=== PATIENT | male | born 1955 | race Caucasian/White ===

== ENCOUNTER 2018-12-09 04:20 | Observation (INO) ==
[2018-12-09] MEDS ORDERED: NITROGLYCERIN SL 0.4 MG/TAB TAB SL STA ×2 (04:27→05:29)
--- NOTE | 2018-12-09 04:30 | Emergency Department Note ---
ED Provider Note Name: Mukund Arroyo Age: 63 M Arrives Via: EMS Informant: Pt, EMS CC: Chest Pressure HPI: 63 male arrives for evaluation of chest pressure. Patient with sudden onset of substernal chest pressure this morning. No radiation. Nothing made better nor worse. No associated symptoms. Denies nause,a vomiting, palpiations, headache, neck pain, syncope, lightheaded nor other symptoms. 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 He admits history of DMII, DLP, HTN. He has previous smoking history. Mother with multiple MIs and eventually of cardiac disease. Denies trauma nor injuries. EMS gave 324mg [employer]. Patient with stress test several years ago which he notes was normal. Denies recent travel, surgery, leg swelling, calf pain nor history of DVT/PE in him nor family. ROS: See above HPI for pertinent positives & negatives. A total of 10 systems reviewed and were otherwise negative. Past Medical History: DLP, DMII, HTN, GERD, Neuropathy Past Surgical History: None Family History: Mother with NC Social History: Lives along, previous smoker, no drugs/etoh Home Medications: Atorvastatin, gabapentin, lansoprazole, metformin, ranitidine Allergies NKDA Physical: Vitals: 166/116, P 72, R 20, T 36.6, O2 99% Exam: GENERAL: Patient is anxious appearing and in mild distress. EYES: No scleral icterus, unremarkable pupils. ENT: Mucous membranes moist, no nasal congestion. NECK: No masses appreciated, no meningismus, trachea is midline. RESPIRATORY: No dyspnea. Clear to auscultation and equal bilaterally. No wheeze, no rhonchi. CARDIOVASCULAR: Regular rate and rhythm. No murmurs, rubs, gallops appreciated. GASTROINTESTINAL: Abdomen soft, non-tender, no peritonitis. Bowel sounds positi ve. No masses appreciated. BACK: No midline tenderness, no CVA tenderness EXTREMITIES: Normal motion all extremities, no cyanosis, no edema. NEUROLOGIC: Alert and oriented, no acute motor or sensory deficits, no focal weakness, cranial nerves grossly intact. SKIN: No rash, no jaundice, no diaphoresis. ED Course: Prior Medical Record, Triage/Nursing Notes, Medications, Allergies reviewed by Me Vital Signs: reviewed and remarkable for HTN Labs: Reviewed and remarkable for normal cbc, bmp, trop Interventions: Saline Lock, SLNTG x 3, Ativan 1mg IV x 1 Imaging: X ray results are stated below per my interpretation: Chest: 1 view: No infiltrate, no effusion, normal cardiac border. EKG: Per My Interpretations #1 Sinus john 56 bpm without ectopy. There are steptal ST depressions #2 NSR 62 bpm no ectopy no ischemia. QTC 408. Improved ST from EKG #1 Consults: Dr Price Reassessments/Times: Stable starting to feel better Blood pressure: Normal. No Referral necessary Disposition: Hospitalization Differentials: ACS, GERD, PE, Dissection, PNA, GB amongst other pathologies. Medical Decision Making: Pleasant 63 yr old male arrives for substernal chest pressure. No previous like this. Multiple cardiac risk factors. Pain initially improved with SLNTG as BP improved. He is quite anxious and ativan given. With return of pain and normal EKG I did opt to give some fentanyl as SLNTG at that time not helping. Suspect there is anxiety component to this though he will clearly need further work-up evaluation, especially given abnormal ST septally on initially ekg (granted poor baseline at that time). No shob nor breathlessness and he is perc negative so I do not feel that CT PE is indicated. Symptoms not consistent with dissection. He has no TTP over epigastrium nor abdomen. Impression: Substernal Chest Pain Mahin Campo MD Impression & Plan Substernal chest pain Past Med/Surg History Social History Preferred Language: Sinhala Feels Safe at Home: Yes Smoking Status: Former smoker Results & Data Vital Signs Vital Signs - 24 hr 12/09/18 04:20 12/09/18 04:26 12/09/18 04:27 Temperature 36.6 C Temperature Source Oral Sepsis Recent Fever Within 48 Hours No Sepsis New/Unexplained Change in Mental Status No Sepsis Action Taken by Nursing No Action Required Pulse Rate 72 57 L 70 Pulse Rate [Apical] Pulse Rate from SpO2 Sensor 58 L 70 Pulse Rhythm [Apical] Pulse Strength [Apical] Respiratory Rate 20 17 13 Respiratory Effort / Characteristics Non-Labored Spontaneous Respiratory Depth Normal Respiratory Pattern Regular Blood Pressure 166/116 H 168/115 H 164/113 H Blood Pressure [Right Arm] Blood Pressure Mean 132 132 130 Blood Pressure Mean [Right Arm] Blood Pressure Position [Right Arm] Pulse Oximetry 99 99 99 Oxygen Delivery Method Room Air 12/09/18 04:28 12/09/18 04:30 03/10/19 04:31 Temperature Temperature Source Sepsis Recent Fever Within 48 Hours Sepsis New/Unexplained Change in Mental Status Sepsis Action Taken by Nursing Pulse Rate 80 59 L 62 Pulse Rate [Apical] Pulse Rate from SpO2 Sensor 72 60 61 Pulse Rhythm [Apical] Pulse Strength [Apical] Respiratory Rate 20 20 14 Respiratory Effort / Characteristics Respiratory Depth Respiratory Pattern Blood Pressure 158/105 H Blood Pressure [Right Arm] Blood Pressure Mean 122 Blood Pressure Mean [Right Arm] Blood Pressure Position [Right Arm] Pulse Oximetry 99 98 98 Oxygen Delivery Method 12/09/18 04:41 12/09/18 05:00 12/09/18 05:01 Temperature Temperature Source Sepsis Recent Fever Within 48 Hours Sepsis New/Unexplained Change in Mental Status Sepsis Action Taken by Nursing Pulse Rate 71 62 66 Pulse Rate [Apical] Pulse Rate from SpO2 Sensor 72 61 65 Pulse Rhythm [Apical] Pulse Strength [Apical] Respiratory Rate 20 13 16 Respiratory Effort / Characteristics Respiratory Depth Respiratory Pattern Blood Pressure 119/88 137/86 Blood Pressure [Right Arm] Blood Pressure Mean 98 103 Blood Pressure Mean [Right Arm] Blood Pressure Position [Right Arm] Pulse Oximetry 97 95 96 Oxygen Delivery Method 12/09/18 05:09 12/09/18 06:10 Temperature Temperature Source Sepsis Recent Fever Within 48 Hours Sepsis New/Unexplained Change in Mental Status Sepsis Action Taken by Nursing Pulse Rate Pulse Rate [Apical] 72 68 Pulse Rate from SpO2 Sensor Pulse Rhythm [Apical] Regular Regular Pulse Strength [Apical] Normal Normal Respiratory Rate 18 18 Respiratory Effort / Characteristics Non-Labored Spontaneous Non-Labored Spontaneous Respiratory Depth Normal Normal Respiratory Pattern Regular Regular Blood Pressure Blood Pressure [Right Arm] 137/86 136/94 Blood Pressure Mean Blood Pressure Mean [Right Arm] 103 108 Blood Pressure Position [Right Arm] Lying Lying Pulse Oximetry 98 95 Oxygen Delivery Method Room Air Room Air Laboratory Data Result diagrams: 12/09/18 04:00 12/09/18 04:00 Lab Results 12/09/18 12/09/18 12/09/18 Range/Units 04:00 04:00 04:00 WBC 12.91 H (4.8-10.8) K/uL RBC 4.92 (4.7-6.1) M/uL Hgb 14.8 (14.0-18.0) g/dL Hct 44.0 (42-52) % MCV 89.4 (80-100) fL MCH 30.1 (25-34) pg MCHC 33.6 (32-36) g/dL RDW Std Deviation 40.9 (36.4-46.3) fL RDW Coeff of Gonzalez 12.6 (11.5-14.5) % Plt Count 310 (130-400) K/uL MPV 11.7 H (7.4-10.4) fL Immature Gran % (Auto) 0.3 % Neut % (Auto) 47.9 % Lymph % (Auto) 41.4 % [place] % (Auto) 7.0 % Eos % (Auto) 2.9 % Baso % (Auto) 0.5 % Immature Gran # (Auto) 0.04 H (0.00-0.02) K/uL Neut # (Auto) 6.17 (1.4-6.5) K/uL Lymph # (Auto) 5.35 H (1.2-3.4) K/uL [place] # (Auto) 0.90 H (0.11-0.59) K/uL Eos # (Auto) 0.38 (0-0.5) K/uL Baso # (Auto) 0.07 (0-0.2) K/uL PT 10.4 (9.0-12.0) Seconds INR 1.0 (0.9-1.1) APTT 26.0 (21.0-31.0) Seconds PTT Ratio 1.0 Sodium 141 (136-145) mmol/L Potassium 3.6 (3.5-5.1) mmol/L Chloride 107 (98-107) mmol/L Carbon Dioxide 25 (21-32) mmol/L Anion Gap 9.0 (3-11) BUN 14 (7-18) mg/dl Creatinine 0.94 (0.6-1.4) mg/dl Est Cr Clr Drug Dosing 92.4 ml/min Est GFR ( Amer) 99.6 Est GFR (Non-Af Amer) 85.9 BUN/Creatinine Ratio 14.9 (10-20) Glucose 160 H (70-99) mg/dl Calcium 8.8 (8.5-10.1) mg/dl Troponin I < 0.015 (0-0.045) ng/ml Administered Medications Discontinued Medications Fentanyl Citrate (Fentanyl Citrate) 75 mcg IV NOW STA Stop: 12/09/18 05:52 Last Admin: 12/09/18 06:09 Dose: Not Given Documented by: [id number] Lorazepam (Ativan) 1 mg in 2 mls @ 2 mls/min IV NOW STA Stop: 12/09/18 05:30 Last Admin: 12/09/18 05:35 Dose: 2 mls/min Documented by: [id number] Nitroglycerin (Nitrostat) 0.4 mg SL NOW STA Stop: 12/09/18 04:28 Last Admin: 12/09/18 04:33 Dose: 0.4 mg Documented by: [id number] Nitroglycerin (Nitrostat) 0.4 mg SL NOW STA Stop: 12/09/18 05:30 Last Admin: 12/09/18 05:36 Dose: 0.4 mg Documented by: [id number] Discharge Plan Visit Data Chief Complaint: Cardiac Assessment ED Provider: Mahin Campo Discharge Problem: Substernal chest pain Forms Stand Alone Forms: My [facility] Prescriptions Prescriptions: No Action atorvastatin 40 mg tablet 40 mg PO HS RF: 0 metformin 500 mg tablet 500 mg PO BID RF: 0 gabapentin 600 mg tablet 600 mg PO BIDM RF: 0 gabapentin 600 mg tablet 1,200 mg PO HS RF: 0 ranitidine HCl 300 mg tablet 300 mg PO HS RF: 0 lansoprazole 30 mg capsule,delayed release(DR/EC) 30 mg PO QAM RF: 0
[2018-12-09 04:40] LABS: Hemoglobin 14.8 g/dL (14.0-18.0); Mean Corpuscular Hgb Conc 33.6 g/dL (32-36); Mean Corpuscular Volume 89.4 fL (80-100); Mean Platelet Volume 11.7 fL (7.4-10.4); Platelet Count 310 K/uL (130-400); RDW Coefficient of Variation 12.6 % (11.5-14.5); RDW Standard Deviation 40.9 fL (36.4-46.3); Red Blood Count 4.92 M/uL (4.7-6.1); White Blood Count 12.91 K/uL (4.8-10.8)
[2018-12-09 04:55] LABS: BUN Creatinine Ratio 14.9 (10-20); Blood Urea Nitrogen 14 mg/dl (7-18); Calcium 8.8 mg/dl (8.5-10.1); Carbon Dioxide 25 mmol/L (21-32); Chloride 107 mmol/L (98-107); Creatinine Clr Calc Pharmacy 92.4 ml/min; Est GFR (African American) 99.6; Est GFR (Non-African American) 85.9; Glucose 160 mg/dl (70-99); Potassium 3.6 mmol/L (3.5-5.1); Sodium 141 mmol/L (136-145)
[2018-12-09 05:00] LABS: Troponin I < 0.015 ng/ml (0-0.045)
[2018-12-09 05:03] LABS: Prothrombin Time 10.4 Seconds (9.0-12.0)
[2018-12-09 05:24] LABS: Basophils # (auto) 0.07 K/uL (0-0.2); Basophils % (auto) 0.5 %; Eosinophils # (auto) 0.38 K/uL (0-0.5); Eosinophils % (auto) 2.9 %; Immature Granulocytes # (auto) 0.04 K/uL (0.00-0.02); Immature Granulocytes % (auto) 0.3 %; Lymphocytes # (auto) 5.35 K/uL (1.2-3.4); Lymphocytes % (auto) 41.4 %; Neutrophils # (auto) 6.17 K/uL (1.4-6.5); Neutrophils % (auto) 47.9 %
[2018-12-09] MEDS ORDERED: LORazepam 1 MG/2 ML VIAL IV STA (05:29)
[2018-12-09] MEDS ORDERED: fentaNYL citrate 100 MCG/2 ML VIAL IV STA (05:51)
--- NOTE | 2018-12-09 06:12 | XRay Report ---
XR chest 1V portable CLINICAL HISTORY: CP dyspnea COMPARISON STUDY: No previous studies for comparison. FINDINGS: The bones soft tissues and hemidiaphragms are normal. The cardiomediastinal silhouette is n ormal. The lungs are clear. The pulmonary vasculature is normal. Slight blunting right lateral costop hrenic angle IMPRESSION: Negative chest. Slight blunting right lateral costophrenic angle The above report was generated using voice recognition software. It may contain grammatical, syntax or spelling errors. Electronically signed by: Trevon Botello M.D. 12/09/2018 6:11 AM
[2018-12-09] MEDS ORDERED: ACETAMINOPHEN 325 MG TAB PO PRN (07:37)
[2018-12-09] MEDS ORDERED: NITROGLYCERIN SL 0.4 MG/TAB TAB SL PRN (07:37)
[2018-12-09] MEDS ORDERED: ALUMINUM/MAGNESIUM SUSP 30 ML UDC PO PRN (07:37)
[2018-12-09] MEDS ORDERED: ONDANSETRON INJ 2 MG/ML 2 ML VIAL IV PRN (07:37)
[2018-12-09] MEDS ORDERED: CARBOHYDRATES FOR HYPOGLYCEMIA PO PRN (07:45)
[2018-12-09] MEDS ORDERED: GLUCOSE 40% GEL 15 GM TUBE PO PRN (07:45)
[2018-12-09] MEDS ORDERED: GLUCOSE 10 TABS/TUBE PO PRN (07:45)
[2018-12-09] MEDS ORDERED: DEXTROSE 50% 50 ML SYRINGE IV PRN (07:45)
[2018-12-09] MEDS ORDERED: GLUCAGON FOR INJ 1 MG VIAL IM PRN (07:45)
--- NOTE | 2018-12-09 09:30 | History and Physical Report ---
DATE OF ADMISSION: 12/09/2018 CHIEF COMPLAINT: Chest pain. HISTORY OF PRESENT ILLNESS: This is a 63-year-old male with past medical history significant for hyperlipidemia, allergic rhinitis, gastritis, cervical disc disease with myelopathy, avascular necrosis of both the hips who presents with chest pain. The patient was babysitting his dogs, one of the dogs woke up at 12:00 and it could not go to sleep, so he took the dog to the basement where it usually sleeps but it was not sleeping and at around 2:00 a.m., he started to notice chest discomfort, pressure like feeling all over the chest, 6/10 in severity, was feeling short of breath, nauseous and anxious, so he came to the ER. In the ER, nitroglycerin relieved his pain, but it was short-lived, his pain came back and he took a total of 3 of nitroglycerins and because of his anxiety, ER also gave him some Ativan and they tried to give him some fentanyl, but he refused. He stated that he had bad experiences with narcotics in the past several years ago, so he does not want to take it. He still has some mild chest discomfort and is resting comfortably otherwise and hemodynamically stable. Denies any headache, no blurred vision. No cough, no fever, no chills. Currently, no shortness of breath, no abdominal pain. Normal bowel and bladder movements. No burning micturition. No swelling, no rash. The patient also says that he has diarrhea since August when he was talking amoxicillin for 5 days. Since then, he is having 4-5 episodes of diarrheal bowel movements every day. ALLERGIES: No known drug allergies. PAST MEDICAL HISTORY: As mentioned above. PAST SURGICAL HISTORY: Colonoscopy, dental surgery, EGD, tonsillectomy. MEDICATIONS: The patient is on Lipitor 40 mg p.o. daily, gabapentin 600 mg in the a.m. and 1200 mg at bedtime, metformin 500 mg p.o. b.i.d., Prevacid 30 mg p.o. daily, Zantac 300 mg p.o. at bedtime. FAMILY HISTORY: No family history on file. SOCIAL HISTORY: Single. Smoker, averaging 1 pack a day for 39 years. Alcohol, quit 10 years ago. Drinks occasionally. No drug use. REVIEW OF SYMPTOMS: As per HPI. Rest of the review of symptoms negative. PHYSICAL EXAMINATION: GENERAL: The patient is of moderate build, not in acute distress. VITAL SIGNS: Temperature 36.6, pulse 68, respiratory rate 18, blood pressure 136/94, oxygen 95% on room air. HEENT: No pallor, no icterus. Pupils equal, round, and react to light. NECK: No JVD, no neck masses, no carotid bruit. CARDIOVASCULAR: S1, S2 heard, regular rate and rhythm, no murmur, no gallop. RESPIRATORY SYSTEM: Normal AP diameter. No accessory muscle use. No wheezing, no crackles. ABDOMEN: Soft, bowel sounds present. Nontender. No distention. CENTRAL NERVOUS SYSTEM: Cranial nerves II-XII grossly intact. Nonfocal. EXTREMITIES: No edema, no erythema. LABORATORIES: WBC of 12.9, hemoglobin 14.8, hematocrit 44, platelets 310. PT 10.4, INR 1, APTT 26. Sodium 141, potassium 3.6, chloride 107, bicarbonate 25, BUN 14, creatinine 0.9, serum glucose 160, calcium 8.8. Troponin I less than 0.015. Chest x-ray: Negative chest. EKG: Sinus bradycardia, rate of 56. Questionable ST depressions in V1 and V2. On repeat EKG, the ST depressions have improved. ASSESSMENT AND PLAN: A 63-year-old male presents with chest pain. 1. Chest pain, rule out acute coronary syndrome. Risk factors of age, hyperlipidemia, diabetes, and history of smoking. Initial troponin is negative. Initial EKG showed some ST depression in V1, V2 whereas the repeat EKG is improved. He required 3 nitroglycerins, still has some chest discomfort. We will place him on nitroglycerin paste. He is refusing narcotics. He has ongoing neck pain and back pain issues and history of gastroesophageal reflux disease, but we will rule out acute coronary syndrome with serial cardiac enzymes, echocardiogram. We will keep him n.p.o. and consult cardiology for further recommendations. We will closely monitor him on telemetry floor. 2. History of hyperlipidemia. Continue statin. Follow his lipid profile. 3. History of cervical disc disease, on gabapentin, which we will continue. 4. History of diabetes. Hold metformin, place him on insulin sliding scale. Follow HbA1c levels. 5. History of gastroesophageal reflux disease, continue his Prevacid and Zantac. 6. Diarrhea. Ongoing since he took amoxicillin in August. will check c diff and stool cx. 7. Deep venous thrombosis prophylaxis, sequential compression devices for now. 8. Disposition: Observation on telemetry floor. Expect to discharge home and follow with his family doctor. Level 1, full code. MTDD
[2018-12-09] MEDS: INSULIN ASPART 100 UNITS/ML 3 ML PEN SC SCH ×4 (09:34→20:22)
[2018-12-09] MEDS: ASPIRIN 81 MG ECTAB PO SCH (09:36)
[2018-12-09] MEDS: PANTOprazole 40 MG TAB PO SCH (09:36)
[2018-12-09] MEDS: GABAPENTIN 600 MG TAB PO SCH ×3 (09:36→20:21)
[2018-12-09] MEDS ORDERED: NITROGLYCERIN 2% OINTMENT 30GM TUBE EXT SCH (12:00)
--- NOTE | 2018-12-09 12:55 | Hospitalist Progress Note ---
Date of Service December 09, 2018 Assessment & Plan (1) Substernal chest pain: Admitted with exertional chest pain since early this morning Has had questionable EKG changes but cardiac enzymes have been negative No more chest pain since admission Appreciate cardiology input and recommendation Likely to have a stress test tomorrow (2) HTN (hypertension): Blood pressure remains stable Continue current medications (3) Diabetes: Blood sugar is stable SSI while in the hospital Other medical conditions remained stable DVT prophylaxis with SCDs and increasing ambulation Likely discharge tomorrow following stress test Subjective Is a 63-year-old male with significant past medical history of hypertension, hyperlipidemia and diabetes was admitted with exertional chest pain which happened to be around 2 AM this morning. 12/09 Denies any chest pain or associated symptoms now Denies any other symptoms Remains hemodynamically stable without any arrhythmias on monitor Physical Exam Vital Signs (Past 24 Hours): Last Vital Signs Temp 36.6 C 12/09/18 12:05 Pulse 57 L 12/09/18 12:05 Resp 19 12/09/18 12:05 BP 156/82 H 12/09/18 12:05 Pulse Ox 96 12/09/18 12:05 Constitutional: WD/WN, vitals as above Eyes: PERRL, conjunctivae normal, anicteric sclerae ENMT: external ear and nose normal, oropharynx normal Neck: trachea midline, no thyromegaly Respiratory: normal respiratory effort, lungs clear to auscultation No c ostochondral tenderness Cardiovascular: Rate/Rhythm: regular rate, regular rhythm and + bradycardic Heart Sounds: normal S1 and normal S2 Gastrointestinal (Abdomen): normal bowel sounds, soft, nontender, no hepatosplenomegaly Neurologic: PERRL, EOMI, accommodation nl, no face palsy, no dysarthria Results & Data Laboratory Results Short CBC 12/09/18 Range/Units 04:00 WBC 12.91 H (4.8-10.8) K/uL Hgb 14.8 (14.0-18.0) g/dL Hct 44.0 (42-52) % Plt Count 310 (130-400) K/uL BMP 12/09/18 04:00 Sodium 141 Potassium 3.6 Chloride 107 Carbon Dioxide 25 BUN 14 Creatinine 0.94 Glucose 160 H Calcium 8.8 Cardiac Enzymes 12/09/18 Range/Units 04:00 Troponin I < 0.015 (0-0.045) ng/ml Medications Administered Current Inpatient Medications Acetaminophen (Tylenol) 650 mg PO Q4H PRN PRN Reason: Pain or Fever Stop: 01/08/19 07:36 Al Hydrox/Mg Hydrox/Simethicone (Maalox) 15 ml PO Q4H PRN PRN Reason: Dyspepsia Stop: 01/08/19 07:36 Aspirin (Ecotrin Ectab) [address] [facility] Stop: 01/08/19 08:59 Last Admin: 12/09/18 09:36 Dose: 81 mg Documented by: Atorvastatin Calcium (Lipitor) [address] [facility] Stop: 01/08/19 20:59 Dextrose (Dextrose 50%) 25 - 50 ml IV UD PRN; Protocol PRN Reason: Hypoglycemia Protocol Stop: 01/08/19 07:44 Gabapentin (Neurontin) 1,[address] [facility] Stop: 01/08/19 20:59 Gabapentin (Neurontin) [address] [facility] Stop: 01/08/19 07:59 Last Admin: 12/09/18 09:36 Dose: 600 mg Documented by: Glucagon (Glucagen) 1 mg IM UD PRN; Protocol PRN Reason: Hypoglycemia Protocol Stop: 01/08/19 07:44 Glucose (Glucose 40%) 15 - 30 gm PO UD PRN; Protocol PRN Reason: Hypoglycemia Protocol Stop: 01/08/19 07:44 Glucose (Dex4 Glucose) 4 - 8 tabs PO UD PRN; Protocol PRN Reason: Hypoglycemia Protocol Stop: 01/08/19 07:44 Insulin Aspart (Novolog Flexpen) [address] [facility] Stop: 01/08/19 07:36 Last Admin: 12/09/18 09:34 Dose: Not Given Documented by: Miscellaneous (Carbohydrates For Hypoglycemia) 15 - 30 gm PO UD PRN PRN Reason: Hypoglycemia Treatment Stop: 01/08/19 07:44 Nitroglycerin (Nitro-Bid 2%) 0.5 inch EXT Q6 [facility] Stop: 01/08/19 11:59 Nitroglycerin (Nitrostat) 0.4 mg SL UD PRN PRN Reason: Chest Pain Stop: 01/08/19 07:36 Ondansetron HCl (Zofran) 4 mg IV Q6H PRN PRN Reason: Nausea Stop: 04/09/19 07:36 Last Admin: 12/09/18 09:58 Dose: 4 mg Documented by: Pantoprazole Sodium (Protonix) 40 mg PO [facility] Stop: 01/08/19 08:59 Last Admin: 12/09/18 09:36 Dose: 40 mg Documented by: Ranitidine HCl (Zantac) 300 mg PO [facility] Stop: 01/08/19 20:59
--- NOTE | 2018-12-09 13:40 | Cardiology Consultation ---
Date of Consultation December 09, 2018 Assessment & Plan (1) Substernal chest pain: Patient is a 63-year-old male with cardiac risk factors of age gender family history, diabetes mellitus, hyperlipidemia and hypertension presented with symptoms of chest pressure pain and shortness of breath during emotional stress and physical activity. Initial enzymes and EKGs reflect no acute changes. Presentation was notable for marked hypertension on arrival question hypertensive urgency. Plan echocardiogram will be reviewed today. Anticipate stress test in a.m. unless EKGs or enzyme change Will recommend treating hypertension with patient having indications for DELMI inhibitor given diabetes mellitus and significant hypertension on presentation Will follow (2) HTN (hypertension): History of Present Illness Reason for Consultation: Chest pressure, shortness of breath Requesting Physician: Dr. Dominguez Attending Physician: Macie Dominguez MD History of Present Illness 63-year-old male whose past medical history is notable for type 2 diabetes mellitus, hyperlipidemia on therapy , cervical myelopathy. He has no prior history of cardiac disease. Outpatient review reveals elevated blood pressures on past measurements. His family history is notable for heart disease in mother including history of coronary bypass grafting and carotid enterectomy Patient underwent stress nuclear imaging March 2015 with normal study Patient presents this admission noting having developed breathlessness and chest pressure in the setting of marked emotional stress and physical stress. Initial EKGs have not demonstrated acute injury pattern and initial troponins are negative. Blood pressures were markedly elevated on initial presentation Patient denies history of prior angina, myocardial infarction, rheumatic fever, scarlet fever, congestive heart failure, orthopnea, or peripheral edema. Patient denies history of TIA or stroke, renal or hepatic disease, thyroid disorder. Appetite and weight have been stable. He has had no recent fevers chills or infections. Notes no acute weight loss or gain. Had recent increase in metformin dosing due to elevated glucoses and patient's been attempting to follow more vigorous diet control. Denies any difficulties with bleeding melena hematochezia dysuria hematuria. Chronic spine and hip issues limit activities patient previously very vigorous Allergies Allergy/AdvReac Type Severity Reaction Status Date / Time No Known Allergies Allergy Unverified 12/09/18 04:44 Home Medications Home Medications Medication Instructions Recorded Confirmed Type atorvastatin 40 mg PO HS 12/09/18 12/09/18 History gabapentin 1,200 mg PO HS 12/09/18 12/09/18 History gabapentin 600 mg PO BIDM 12/09/18 12/09/18 History lansoprazole 30 mg PO QAM 12/09/18 12/09/18 History metformin 500 mg PO BID 12/09/18 12/09/18 History ranitidine HCl 300 mg PO HS 12/09/18 12/09/18 History Patient History Family History Mother Hx of CABG Social History Preferred Language: Dominican Communication Ability: Effective Billing Manager Required: No Beliefs That Will Affect Care: None Current Living Situation: Alone Other Information That Helps Us Care for You: No Feels Safe at Home: Yes Safety Concerns: Feels Safe At This Time Smoking Status: Former smoker Hx Alcohol Use: No Hx Substance Use: No Review of Systems As per HPI and otherwise negative Physical Exam Vital Signs (Past 24 Hours): Last Vital Signs Temp 36.6 C 12/09/18 12:05 Pulse 57 L 12/09/18 12:05 Resp 19 12/09/18 12:05 BP 156/82 H 12/09/18 12:05 Pulse Ox 96 12/09/18 12:05 Constitutional: WD/WN, vitals as above Eyes: PERRL, conjunctivae normal, anicteric sclerae ENMT: external ear and nose normal, oropharynx normal Neck: trachea midline, no thyromegaly Respiratory: normal respiratory effort, lungs clear to auscultation Cardiovascular: RRR, no murmur, no edema Heart Sounds: normal S1 and normal S2; no gallop and no cardiac rub Vessels: normal carotid upstroke Gastrointestinal (Abdomen): normal bowel sounds, soft, nontender, no hepatosplenomegaly Musculoskeletal: no cyanosis or clubbing, extremities motor strength 5/5 Skin: no rashes, warm and dry Psychiatric: A+Ox3, euthymic affect Results & Data Laboratory Results Laboratory Results - last 24 hr 12/09/18 12/09/18 12/09/18 04:00 04:00 04:00 WBC 12.91 H RBC 4.92 Hgb 14.8 Hct 44.0 MCV 89.4 MCH 30.1 MCHC 33.6 RDW Std Deviation 40.9 RDW Coeff of [place] 12.6 Plt Count 310 MPV 11.7 H Immature Gran % (Auto) 0.3 Neut % (Auto) 47.9 Lymph % (Auto) 41.4 [place] % (Auto) 7.0 Eos % (Auto) 2.9 Baso % (Auto) 0.5 Immature Gran # (Auto) 0.04 H Neut # (Auto) 6.17 Lymph # (Auto) 5.35 H [place] # (Auto) 0.90 H Eos # (Auto) 0.38 Baso # (Auto) 0.07 PT 10.4 INR 1.0 APTT 26.0 PTT Ratio 1.0 Sodium 141 Potassium 3.6 Chloride 107 Carbon Dioxide 25 Anion Gap 9.0 BUN 14 Creatinine 0.94 Est Cr Clr Drug Dosing 92.4 Est GFR ( Amer) 99.6 Est GFR (Non-Af Amer) 85.9 BUN/Creatinine Ratio 14.9 Glucose 160 H POC Glucose Calcium 8.8 Troponin I < 0.015 12/09/18 12/09/18 07:39 11:08 WBC RBC Hgb Hct MCV MCH MCHC RDW Std Deviation RDW Coeff of Gonzalez Plt Count MPV Immature Gran % (Auto) Neut % (Auto) Lymph % (Auto) [place] % (Auto) Eos % (Auto) Baso % (Auto) Immature Gran # (Auto) Neut # (Auto) Lymph # (Auto) [place] # (Auto) Eos # (Auto) Baso # (Auto) PT INR APTT PTT Ratio Sodium Potassium Chloride Carbon Dioxide Anion Gap BUN Creatinine Est Cr Clr Drug Dosing Est GFR ( Amer) Est GFR (Non-Af Amer) BUN/Creatinine Ratio Glucose POC Glucose 145 H 133 H Calcium Troponin I
[2018-12-09] MEDS ORDERED: LISINOPRIL 5 MG TAB PO ONE (14:04)
[2018-12-09] MEDS: ATORVASTATIN 40 MG TAB PO SCH (20:22)
[2018-12-10 05:27] LABS: Basophils # (auto) 0.03 K/uL (0-0.2); Basophils % (auto) 0.2 %; Eosinophils # (auto) 0.08 K/uL (0-0.5); Eosinophils % (auto) 0.5 %; Hemoglobin 14.4 g/dL (14.0-18.0); Immature Granulocytes # (auto) 0.05 K/uL (0.00-0.02); Immature Granulocytes % (auto) 0.3 %; Lymphocytes # (auto) 2.83 K/uL (1.2-3.4); Mean Corpuscular Hgb Conc 33.5 g/dL (32-36); Mean Corpuscular Volume 89.4 fL (80-100); Mean Platelet Volume 11.4 fL (7.4-10.4); Monocytes % (auto) 7.8 %; Neutrophils # (auto) 12.38 K/uL (1.4-6.5); Neutrophils % (auto) 74.2 %; Platelet Count 285 K/uL (130-400); RDW Coefficient of Variation 12.7 % (11.5-14.5); RDW Standard Deviation 41.1 fL (36.4-46.3); Red Blood Count 4.81 M/uL (4.7-6.1); White Blood Count 16.67 K/uL (4.8-10.8)
[2018-12-10 05:51] LABS: BUN Creatinine Ratio 12.9 (10-20); Calcium 8.6 mg/dl (8.5-10.1); Creatinine Clr Calc Pharmacy 97.7 ml/min; Est GFR (Non-African American) 91.4; Magnesium 2.1 mg/dl (1.8-2.4)
[2018-12-10 06:47] LABS: Estimated Average Glucose 148 mg/dl; Hemoglobin A1C 6.8 % (4.5-5.6)
[2018-12-10] MEDS: INSULIN ASPART 100 UNITS/ML 3 ML PEN SC SCH ×4 (08:33→21:03)
[2018-12-10] MEDS: GABAPENTIN 600 MG TAB PO SCH ×3 (08:34→21:01)
[2018-12-10] MEDS: ASPIRIN 81 MG ECTAB PO SCH (08:34)
[2018-12-10] MEDS: PANTOprazole 40 MG TAB PO SCH (08:34)
--- NOTE | 2018-12-10 09:31 | Cardiology Progress Note ---
Date of Service December 10, 2018 Assessment & Plan (1) Substernal chest pain: Patient is a 63-year-old male with cardiac risk factors of age gender family history, diabetes mellitus, hyperlipidemia and hypertension presented with symptoms of chest pressure pain and shortness of breath during emotional stress and physical activity. Initial and serial enzymes and EKGs reflect no acute changes. Presentation was notable for marked hypertension on arrival question hypertensive urgency. Echocardiogram reflected posterior wall motion abnormality, telemetry revealed short runs of complex ventricular ectopy overnight. Discussed options of management and recommended diagnostic cardiac catheter ization later today. Procedure and risks explained in detail, patient agreeable further recommendations pending the results of study (2) HTN (hypertension): Improved with the addition of lisinopril Subjective She was seen and examined, chart occasions, telemetry reviewed No further chest pain or discomfort overnight. Telemetry demonstrated 2 short runs of nonsustained VT/complex ectopy Echocardiogram reflected hypokinesis of the posterior wall EKGs and enzymes without evolution Physical Exam Vital Signs (Past 24 Hours): Last Vital Signs Temp 36.7 C 12/10/18 07:09 Pulse 67 12/10/18 08:00 Resp 18 12/10/18 07:09 BP 127/79 12/10/18 07:09 Pulse Ox 96 12/10/18 07:09 Constitutional: WD/WN, vitals as above Eyes: PERRL, conjunctivae normal, anicteric sclerae ENMT: external ear and nose normal, oropharynx normal Neck: trachea midline, no thyromegaly Respiratory: normal respiratory effort, lungs clear to auscultation Cardiovascular: RRR, no murmur, no edema Heart Sounds: normal S1 and normal S2; no gallop and no cardiac rub Vessels: normal carotid upstroke Gastrointestinal (Abdomen): normal bowel sounds, soft, nontender, no hepatosplenomegaly Musculoskeletal: no cyanosis or clubbing, extremities motor strength 5/5 Skin: no rashes, warm and dry Psychiatric: A+Ox3, euthymic affect Results & Data Laboratory Results Laboratory Results - last 24 hr 12/09/18 12/09/18 12/09/18 11:08 14:15 16:27 WBC RBC Hgb Hct MCV MCH MCHC RDW Std Deviation RDW Coeff of Gonzalez Plt Count MPV Immature Gran % (Auto) Neut % (Auto) Lymph % (Auto) [place] % (Auto) Eos % (Auto) Baso % (Auto) Immature Gran # (Auto) Neut # (Auto) Lymph # (Auto) [place] # (Auto) Eos # (Auto) Baso # (Auto) Sodium Potassium Chloride Carbon Dioxide Anion Gap BUN Creatinine Est Cr Clr Drug Dosing Est GFR ( Amer) Est GFR (Non-Af Amer) BUN/Creatinine Ratio Glucose POC Glucose 133 H 140 H Estimat Average Glucose Hemoglobin A1c Calcium Magnesium Triglycerides Cholesterol LDL Cholesterol, Calc VLDL Cholesterol, Calc HDL Cholesterol Cholesterol/HDL Ratio Stl C. diff Tox B Gene TNP 12/09/18 12/10/18 12/10/18 20:09 05:15 05:15 WBC 16.67 H RBC 4.81 Hgb 14.4 Hct 43.0 MCV 89.4 MCH 29.9 MCHC 33.5 RDW Std Deviation 41.1 RDW Coeff of Gonzalez 12.7 Plt Count 285 MPV 11.4 H Immature Gran % (Auto) 0.3 Neut % (Auto) 74.2 Lymph % (Auto) 17.0 [place] % (Auto) 7.8 Eos % (Auto) 0.5 Baso % (Auto) 0.2 Immature Gran # (Auto) 0.05 H Neut # (Auto) 12.38 H Lymph # (Auto) 2.83 [place] # (Auto) 1.30 H Eos # (Auto) 0.08 Baso # (Auto) 0.03 Sodium 141 Potassium 4.0 Chloride 109 H Carbon Dioxide 26 Anion Gap 6.0 BUN 11 Creatinine 0.88 Est Cr Clr Drug Dosing 97.7 Est GFR ( Amer) 106.0 Est GFR (Non-Af Amer) 91.4 BUN/Creatinine Ratio 12.9 Glucose 128 H POC Glucose 112 H Estimat Average Glucose Hemoglobin A1c Calcium 8.6 Magnesium 2.1 Triglycerides 132 Cholesterol 122 LDL Cholesterol, Calc 52 VLDL Cholesterol, Calc 26 HDL Cholesterol 44 Cholesterol/HDL Ratio 3 Stl C. diff Tox B Gene 12/10/18 12/10/18 05:15 07:53 WBC RBC Hgb Hct MCV MCH MCHC RDW Std Deviation RDW Coeff of Gonzalez Plt Count MPV Immature Gran % (Auto) Neut % (Auto) Lymph % (Auto) [place] % (Auto) Eos % (Auto) Baso % (Auto) Immature Gran # (Auto) Neut # (Auto) Lymph # (Auto) [place] # (Auto) Eos # (Auto) Baso # (Auto) Sodium Potassium Chloride Carbon Dioxide Anion Gap BUN Creatinine Est Cr Clr Drug Dosing Est GFR ( Amer) Est GFR (Non-Af Amer) BUN/Creatinine Ratio Glucose POC Glucose 139 H Estimat Average Glucose 148 Hemoglobin A1c 6.8 H Calcium Magnesium Triglycerides Cholesterol LDL Cholesterol, Calc VLDL Cholesterol, Calc HDL Cholesterol Cholesterol/HDL Ratio Stl C. diff Tox B Gene
[2018-12-10] MEDS ORDERED: SODIUM CHLORIDE 0.9% 1000ML 1,000 ML IV SCH ×2 (09:45→16:30)
[2018-12-10] MEDS: LISINOPRIL 5 MG TAB PO SCH (10:18)
[2018-12-10] MEDS ORDERED: Heparin IV Standard *NO* Bolus IV SCH (10:39)
[2018-12-10] MEDS ORDERED: HEPARIN STANDARD DEXTROSE 25,000 UNITS/500 ML IV SCH (11:15)
[2018-12-10 11:21] LABS: INR 1.1 (0.9-1.1); Partial Thromboplastin Time 26.3 Seconds (21.0-31.0); Prothrombin Time 10.9 Seconds (9.0-12.0)
[2018-12-10] MEDS ORDERED: fentaNYL citrate 100 MCG/2 ML VIAL ONE (13:12)
[2018-12-10] MEDS ORDERED: MIDAZOLAM HCL 1 MG/ML 2ML VIAL ONE ×2 (13:12→14:49)
[2018-12-10] MEDS ORDERED: NITROGLYCERIN/D5W 100MCG/ML 20ML SYR ONE (13:13)
[2018-12-10] MEDS ORDERED: NiCARDipine HCL INJ 2.5 MG/ML 10 ML AMP ONE (13:13)
[2018-12-10] MEDS ORDERED: HEPARIN (PORCINE) 1000 UNIT/ML 10 ML (CATH LAB USE ONLY) ONE (13:13)
--- NOTE | 2018-12-10 13:34 | Pre Anesthesia Assessment ---
Date of Service December 10, 2018 Pre Sedation Assessment Vital Signs Temp Pulse Pulse Resp BP BP Pulse Ox 12/10/18 11:53 36.5 C 61 18 133/77 97 12/10/18 08:00 67 12/10/18 07:09 36.7 C 60 18 127/79 96 12/10/18 03:24 36.5 C 65 16 127/72 96 12/09/18 22:53 36.9 C 56 L 18 116/62 98 12/09/18 19:27 54 L 12/09/18 18:54 37.1 C 65 20 134/86 96 12/09/18 15:01 36.6 C 51 L 19 127/76 98 Cardiovascular RRR, no murmur, no edema Respiratory normal respiratory effort, lungs clear to auscultation Pre-Sedation Airway Assessment Smoking Status: Former smoker Mallampati Class: II NPO Status Date of Last Intake of Fluids: 12/10/18 Time of Last Intake of Fluids: 09:30 Date of Last Intake of Solid Food: 12/09/18 Procedure Planning Contraindications for Sedation: none Current Medications Reviewed: Yes Notes The planned sedation has been discussed with the patient. Informed Consent was obtained. I have identified the patient, determined the appropriateness of sedation and have assessed the patient immediately prior to the procedure. All medicine(s) and interventions are by my order.
[2018-12-10] MEDS ORDERED: ADENOSINE IV SOLN 3 MG/ML 20 ML VIAL IV ONE (14:23)
--- NOTE | 2018-12-10 14:23 | Cardiac Catheterization ---
Cardiac Cath Procedure: Brief Procedure Date December 10, 2018 Pre-Procedure Diagnosis Pre-Procedure Diagnosis: Non STEMI AUC Score AUC Score: 7 Post-Procedure Diagnosis Post-Procedure Diagnosis: Severe CAD (Circumflex obtuse marginal occlusion) Procedure(s) Performed Procedure(s) Performed: Coronary Angiography and Left Heart Cath X Ray Service Engineer Jorge Schreiber MD Hand Thermal Cutter(s) David Nunn Estimated Blood Loss Estimated Blood Loss: <15 cc Medication(s) Medication(s): Fentanyl (12.5 mcg IV), Heparin (2500 units IV 58), Lidocaine 1% (Local infiltration) and Versed (1 mg IV) Preliminary Findings Right dominant coronary anatomy Left main normal length and caliber free of disease Left anterior descending: Tortuous type III vessel with small first diagonal and large second diagonal branches in its proximal third. There is moderate irregularities throughout the vessel with a long 30% narrowing in its proximal portion, 20% mid vessel 20% apical Left circumflex: Nondominant. It gives rise to a large atrial branch and then is 100% occluded the distal vessel may be seen filling partially revealed left to left collateral flow Right coronary artery: Dominant, tortuous in its coursing. Gives rise to a large right ventricular branch in its mid portion, along posterior descending at the AV groove 2 small then 1 long terminal posterior ventricular branches Within the right coronary artery there is a 70% narrowing at the origin of the right ventricular branch LV angiography not performed LVEDP 11 Mild aortic stenosis with 15 mm peak to peak aortic valve gradient on pullback Recommendations Recommendations: PCI without planned CABG Specimens Specimens: None Fluids (cc crystalloids) Fluids (cc crystalloids): 58 Anesthesia Start time: 1344, stop time 1409 monitoring nurse Leeanne Yepez RN Procedural Complication(s) None
--- NOTE | 2018-12-10 14:45 | Cardiac Catheterization ---
Cardiac Cath Procedure Full Procedure Date December 10, 2018 Pre-Procedure Diagnosis Pre-Procedure Diagnosis: Non STEMI AUC Score AUC Score: 8 Post-Procedure Diagnosis Post-Procedure Diagnosis: Severe CAD (Circumflex obtuse marginal occlusion) Procedure(s) Performed Procedure(s) Performed: Coronary Angiography and Left Heart Cath Production Manufacturing Worker Jorge Schreiber MD Process Control Programmer(s) David Nunn Estimated Blood Loss Estimated Blood Loss: <15 cc Medication(s) Medication(s): Fentanyl (12.5 mcg IV), Heparin (2500 units IV 58), Lidocaine 1% (Local infiltration) and Versed (1 mg IV) Summary of Findings Right dominant coronary anatomy Left main normal length and caliber free of disease Left anterior descending: Tortuous type III vessel with small first diagonal and large second diagonal branches in its proximal third. There is moderate irregularities throughout the vessel with a long 30% narrowing in its proximal portion, 20% mid vessel 20% apical. Origin of first diagonal narrowed by 70%, origin of second diagonal by 40% Left circumflex: Nondominant. It gives rise to a large atrial branch and then is 100% occluded the distal vessel may be seen filling partially revealed left to left collateral flow Right coronary artery: Dominant, tortuous in its coursing. Gives rise to a large right ventricular branch in its mid portion, along posterior descending at the AV groove 2 small then 1 long terminal posterior ventricular branches Within the right coronary artery there is a 70% narrowing at the origin of the right ventricular branch LV angiography not performed LVEDP 11 Mild aortic stenosis with 15 mm peak to peak aortic valve gradient on pullback Hemodynamics Rest Ao:: 112/65/87 Final Ao: 115/65/89 LV: 133/2/11 Recommendations Recommendations: PCI without planned CABG Specimens Specimens: None Radiation Exposure (mGy) 1307 Contrast (mls) 65 Fluids (cc crystalloids) Fluids (cc crystalloids): 58 Anesthesia Start time: 1344, stop time 1409 monitoring nurse Leeanne Yepez RN Procedural Complication(s) None 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 Cardiac Status Clinical evaluation leading to the procedure CAD Presenation: Non STEMI Anginal Classification: CCS III Heart Failure: No Cardiogenic Shock within 24 Hours: No Cardiac Arrest within 24 Hours: No Imaging Studies Past 6 Months: Yes (Echocardiogram with hypokinesis posterior wall) Stress Studies Past 6 Months: No Standard Exercise Test: No Stress Echocardiogram: No Stress Testing w/SPECT MPI: No Cardiac CTA: No STEMI OR Non-STEMI Symptom Onset Date: 12/09/18 Symptom Onset Time: 02:00 Thrombolytics: No Coronary Anatomy Dominant: Right Left Main (% Stenosis): Normal LAD (% Stenosis): Proximal (Long 30% with mild irregularity throughout), Mid (20%) and Distal (20%) D1 (% Stenosis): Ostial (70 (small vessel)) D2 (% Stenosis): Ostial (40) D3 (% Stenosis): Mid (100% at obtuse marginal with staining at occlusion site) RCA (% Stenosis): Mid (70, eccentric) Diagnostic Physicians Name: Jorge Schreiber MD Status: Urgent Closure Device Recommendations: PCI without planned CABG
[2018-12-10] MEDS ORDERED: TICAGRELOR 90 MG TAB PO ONE (15:28)
[2018-12-10] MEDS ORDERED: ONDANSETRON INJ 2 MG/ML 2 ML VIAL IV PRN (15:53)
--- NOTE | 2018-12-10 15:57 | Post Anesthesia Assessment ---
Date of Service December 10, 2018 Post Sedation Assessment Vital Signs Temp Pulse Pulse Resp BP Pulse Ox 12/10/18 11:53 36.5 C 61 18 133/77 97 12/10/18 08:00 67 12/10/18 07:09 36.7 C 60 18 127/79 96 12/10/18 03:24 36.5 C 65 16 127/72 96 12/09/18 22:53 36.9 C 56 L 18 116/62 98 12/09/18 19:27 54 L 12/09/18 18:54 37.1 C 65 20 134/86 96 Recovery Score Activity: Moves 4 extremities Respiration: Deep Breath/Cough Circulation: +/-20% PreAnes Value Consciousness: Fully Awake Oxygen Saturation: O2 needed for >90% Post Sedation Plan On clinical assessment, the patient appears to have tolerated the sedation without complications. Patient is recovering as anticipated. Patient will continue to be monitored by nursing and may be discharged when sedation discharge criteria are met per below protocol. Upon Completions of procedure and additional 15 minutes continue every 5 minute vital signs and the P.A.R. score; then discharge to a Phase I or Fast Track to Phase II per the following guidelines: * Discharge Patient to appropriate Phase II area if PAR is 8 or greater or return to pre- procedure baseline. The post - procedure orders will be as directed. * If PAR score is less than 8 or not return to pre-procedure baseline then patient will follow Phase I monitoring till PAR is reached for Phase II. The Phase I may be done in procedure room or may call to secure a Phase I area. * If naloxone or flumazenil are used for reversal, hold in Phase I for continued monitoring from when last reversal dose was given for a minimum of 60 minutes or longer pending the nurse and/or physician discretion of patient condition before discharge to Phase II. Please call the Sedation Physician to re-evaluate and complete post-note for discharge to Phase II area. Do NOT discharge from procedure sedation or Phase 1 until post- sedation evaluation note is complete by procedure /sedation MD Sedation Discharge Instructions to be given to the patient at discharge to home.
--- NOTE | 2018-12-10 16:11 | Cardiac Catheterization ---
Cardiac Cath Procedure Full Procedure Date December 10, 2018 Pre-Procedure Diagnosis Pre-Procedure Diagnosis: Non STEMI AUC Score AUC Score: 8 Post-Procedure Diagnosis Post-Procedure Diagnosis: Severe CAD (Circumflex obtuse marginal occlusion) and Successful PCI Procedure(s) Performed Procedure(s) Performed: Drug Eluting Stent News Video Editor Manuel Desai MD Out And Out Cigar Maker Hand(s) Stephan Power Estimated Blood Loss Estimated Blood Loss: 20 Medication(s) Medication(s): Fentanyl, Heparin, Lidocaine 1%, Nicardipine, Nitroglycerin and Versed (1 mg IV) Medication(s): Ticagrelor Summary of Findings Indication: High-risk NSTEMI Access: 6Fr right radial artery Catheters: EBU 3.5 guide Findings: For full details of patient's coronary angiography please see cath report dictated by Dr. Schreiber. Briefly, patient found to have multivessel disease including an acute on chronic occlusion of his mid circumflex. Decision to proceed PCI. -- PCI -- Antithrombotic therapy: Heparin, Ticagrelor Procedure: LM cannulated with EBU 3.5 guide Long whisper wire passed across occlusion into distal vessel Intravascular position confirmed via injection through OTW balloon. Mid circumflex lesion/OM predilated with 2.0, 2.5 compliant balloons Mid OM2 stented with 2.5 x 26 mm [place] EVERETTE Proximal to mid circumflex stent with 2.5 x 26 [place] EVERETTE Stents post-dilated with 2.75 noncompliant balloon IC vasodilators administered for spasm Post procedure KI 3 flow, stents well expanded with minimal residual stenosis and no apparent cardiac complications. Arterial Closure: TR Band Summary: 1. Successful PCI of proximal to mid circumflex and mid OM2 with 2 drug-eluting stents (2.5 x 26, 2.5 x 26 [place]; post-dilated with 2.75 NC). Recommendations: To PCU for continued monitoring Loaded with Ticagrelor 180mg in cath lab tech Continue dual-antiplatelet therapy for at least 1 year Continue statin, and ASCVD risk factor modification Consult cardiac Rehab Plan for FFR +/- PCI of mid RCA sometime in the next several weeks. 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 Cardiac Status Clinical evaluation leading to the procedure CAD Presenation: Non STEMI Anginal Classification: CCS IV Heart Failure: No Cardiogenic Shock within 24 Hours: No Cardiac Arrest within 24 Hours: No Imaging Studies Past 6 Months: Yes Stress Studies Past 6 Months: No Diagnostic Physicians Name: Manuel Desai MD Status: Elective Closure Device Percutaneous Entry Location: Radial Closure Device: Radial Band Recommendations: PCI without planned CABG PCI Indication: PCI for high risk Non-AJ Lesion Segment Name: Proximal-mid circumflex Culprit Artery: Yes Stenosis Prior to Rx (%): 100 Chronic Total Occlusion: No IVUS: No FFR: No Pre-Procedure KI Flow: 0 Previously Treated Lesion: No Lesion Complexity: High/C Lesion Length (mm): 30+ Thrombus Present: Yes Bifurcation Lesion: No Guidewire Across Lesion: Stenosis Post-Procedure (%): 0 Post-Procedure KI Flow: 3 Devices(s) Deployed: Yes Yes Intraprocedure Events Significant Disection: No Perforation: No
[2018-12-10] MEDS: ATORVASTATIN 40 MG TAB PO SCH (21:01)
[2018-12-10] MEDS: TICAGRELOR 90 MG TAB PO SCH (21:01)
[2018-12-11] MEDS: INSULIN ASPART 100 UNITS/ML 3 ML PEN SC SCH ×4 (08:05→22:06)
[2018-12-11 08:38] LABS: BUN Creatinine Ratio 14.4 (10-20); Calcium 9.1 mg/dl (8.5-10.1); Creatinine Clr Calc Pharmacy 98.6 ml/min; Est GFR (African American) 106.5; Est GFR (Non-African American) 91.9; Potassium 3.8 mmol/L (3.5-5.1)
[2018-12-11] MEDS: GABAPENTIN 600 MG TAB PO SCH ×3 (10:15→20:38)
[2018-12-11] MEDS: LISINOPRIL 5 MG TAB PO SCH (10:15)
[2018-12-11] MEDS: PANTOprazole 40 MG TAB PO SCH (10:15)
[2018-12-11] MEDS: ASPIRIN 81 MG ECTAB PO SCH (10:16)
[2018-12-11] MEDS: TICAGRELOR 90 MG TAB PO SCH ×2 (10:41→20:39)
[2018-12-11] MEDS ORDERED: MIDAZOLAM HCL 1 MG/ML 2ML VIAL ONE (11:55)
[2018-12-11] MEDS ORDERED: HEPARIN (PORCINE) 1000 UNIT/ML 10 ML (CATH LAB USE ONLY) ONE (11:55)
[2018-12-11] MEDS ORDERED: NiCARDipine HCL INJ 2.5 MG/ML 10 ML AMP ONE (11:55)
[2018-12-11] MEDS ORDERED: NITROGLYCERIN/D5W 100MCG/ML 20ML SYR ONE (11:55)
[2018-12-11] MEDS ORDERED: fentaNYL citrate 100 MCG/2 ML VIAL ONE (11:55)
--- NOTE | 2018-12-11 11:56 | Cardiology Progress Note ---
Date of Service December 11, 2018 Assessment & Plan (1) Non-ST elevation myocardial infarction (NSTEMI): Patient underwent urgent diagnostic cardiac catheterization yesterday demonstrating 100% occlusion circumflex with successful revascularization with drug-eluting stent. Patient has residual disease in mid right coronary artery Plan a repeat cardiac catheterization flow wire and possible stenting of the right coronary artery Will place patient on optimal medical regimen interim add low-dose beta-silva to regimen post procedure. Continue lisinopril Increased dose of atorvastatin Dual antiplatelet therapy (2) Substernal chest pain: As above (3) HTN (hypertension): Improved with the addition of lisinopril (4) Aortic stenosis: Mild Subjective The patient was seen and examined, chart occasions, telemetry reviewed No further chest pain or discomfort overnight. Right radial site healing well Tolerated cardiac catheterization procedure well yesterday, renal function normal this morning Only complaint hungry, frustrated with new diagnosis of coronary disease Physical Exam Vital Signs (Past 24 Hours): Last Vital Signs Temp 36.6 C 12/11/18 10:47 Pulse 90 12/11/18 10:47 Resp 19 12/11/18 10:47 BP 134/84 12/11/18 10:47 Pulse Ox 97 12/11/18 10:47 Constitutional: WD/WN, vitals as above Eyes: PERRL, conjunctivae normal, anicteric sclerae ENMT: external ear and nose normal, oropharynx normal Mallampati Class: II Neck: trachea midline, no thyromegaly Respiratory: normal respiratory effort, lungs clear to auscultation Cardiovascular: RRR, no murmur, no edema Heart Sounds: normal S1 and normal S2; no gallop and no cardiac rub Vessels: normal carotid upstroke Gastrointestinal (Abdomen): normal bowel sounds, soft, nontender, no hepatosplenomegaly Musculoskeletal: no cyanosis or clubbing, extremities motor strength 5/5 Skin: no rashes, warm and dry Psychiatric: A+Ox3, euthymic affect
[2018-12-11] MEDS ORDERED: ADENOSINE IV SOLN 3 MG/ML 20 ML VIAL IV ONE (12:26)
--- NOTE | 2018-12-11 13:17 | Pre Anesthesia Assessment ---
Date of Service December 11, 2018 Pre Sedation Assessment Vital Signs Temp Pulse Pulse Resp BP Pulse Ox 12/11/18 10:47 36.6 C 90 19 134/84 97 12/11/18 07:45 76 12/11/18 07:01 36.4 C L 72 16 101/64 97 12/11/18 03:34 36.8 C 92 H 18 103/64 97 12/10/18 21:38 36.9 C 85 18 115/74 98 12/10/18 20:38 36.7 C 93 H 18 121/74 98 12/10/18 19:38 36.8 C 62 16 129/77 95 12/10/18 18:38 88 127/84 12/10/18 17:38 73 135/76 100 12/10/18 17:08 36.8 C 61 135/83 100 12/10/18 17:07 67 12/10/18 16:38 36.7 C 65 16 136/85 100 12/10/18 16:23 68 129/76 98 12/10/18 16:08 36.8 C 64 125/74 98 12/10/18 15:53 36.6 C 58 L 16 123/72 99 Cardiovascular RRR, no murmur, no edema Respiratory normal respiratory effort, lungs clear to auscultation Pre-Sedation Airway Assessment Smoking Status: Former smoker Mallampati Class: II NPO Status Date of Last Intake of Fluids: 12/10/18 Time of Last Intake of Fluids: 09:30 Date of Last Intake of Solid Food: 12/09/18 Procedure Planning Contraindications for Sedation: none Current Medications Reviewed: Yes Notes The planned sedation has been discussed with the patient. Informed Consent was obtained. I have identified the patient, determined the appropriateness of sedation and have assessed the patient immediately prior to the procedure. All medicine(s) and interventions are by my order.
--- NOTE | 2018-12-11 13:18 | Post Anesthesia Assessment ---
Date of Service December 11, 2018 Post Sedation Assessment Vital Signs Temp Pulse Pulse Resp BP Pulse Ox 12/11/18 10:47 36.6 C 90 19 134/84 97 12/11/18 07:45 76 12/11/18 07:01 36.4 C L 72 16 101/64 97 12/11/18 03:34 36.8 C 92 H 18 103/64 97 12/10/18 21:38 36.9 C 85 18 115/74 98 12/10/18 20:38 36.7 C 93 H 18 121/74 98 12/10/18 19:38 36.8 C 62 16 129/77 95 12/10/18 18:38 88 127/84 12/10/18 17:38 73 135/76 100 12/10/18 17:08 36.8 C 61 135/83 100 12/10/18 17:07 67 12/10/18 16:38 36.7 C 65 16 136/85 100 12/10/18 16:23 68 129/76 98 12/10/18 16:08 36.8 C 64 125/74 98 12/10/18 15:53 36.6 C 58 L 16 123/72 99 Recovery Score Activity: Moves 4 extremities Respiration: Deep Breath/Cough Circulation: +/-20% PreAnes Value Consciousness: Fully Awake Oxygen Saturation: O2 needed for >90% Post Sedation Plan On clinical assessment, the patient appears to have tolerated the sedation without complications. Patient is recovering as anticipated. Patient will continue to be monitored by nursing and may be discharged when sedation discharge criteria are met per below protocol. Upon Completions of procedure and additional 15 minutes continue every 5 minute vital signs and the P.A.R. score; then discharge to a Phase I or Fast Track to Phase II per the following guidelines: * Discharge Patient to appropriate Phase II area if PAR is 8 or greater or return to pre- procedure baseline. The post - procedure orders will be as directed. * If PAR score is less than 8 or not return to pre-procedure baseline then patient will follow Phase I monitoring till PAR is reached for Phase II. The Phase I may be done in procedure room or may call to secure a Phase I area. * If naloxone or flumazenil are used for reversal, hold in Phase I for continue d monitoring from when last reversal dose was given for a minimum of 60 minutes or longer pending the nurse and/or physician discretion of patient condition before discharge to Phase II. Please call the Sedation Physician to re-evaluate and complete post-note for discharge to Phase II area. Do NOT discharge from procedure sedation or Phase 1 until post- sedation evaluation note is complete by procedure /sedation MD Sedation Discharge Instructions to be given to the patient at discharge to home.
--- NOTE | 2018-12-11 13:19 | Cardiac Catheterization ---
Cardiac Cath Procedure: Brief Procedure Date December 11, 2018 Pre-Procedure Diagnosis Pre-Procedure Diagnosis: Non STEMI AUC Score AUC Score: 8 Post-Procedure Diagnosis Post-Procedure Diagnosis: Severe CAD (Circumflex obtuse marginal occlusion) and Successful PCI Procedure(s) Performed Procedure(s) Performed: Drug Eluting Stent Branch Officer Manuel Desai MD Mixing Machine Tender(s) Stephan Power Estimated Blood Loss Estimated Blood Loss: 20 Medication(s) Medication(s): Fentanyl, Heparin, Lidocaine 1%, Nicardipine, Nitroglycerin and Versed (1 mg IV) Preliminary Findings IFR 0.70 Successful PCI of mid RCA with single EVERETTE (3.0 x 18 mm Ramone). Recommendations Recommendations: PCI without planned CABG Specimens Specimens: None Drains Drains: none Anesthesia Moderate Procedural Complication(s) None Disposition PCU
[2018-12-11] MEDS ORDERED: SODIUM CHLORIDE 0.9% 1000ML 1,000 ML IV SCH (13:30)
--- NOTE | 2018-12-11 16:38 | Hospitalist Progress Note ---
Date of Service December 10, 2018 Assessment & Plan (1) Substernal chest pain: Admitted with exertional chest pain since early this morning Has had questionable EKG changes but cardiac enzymes have been negative No more chest pain since admission Appreciate cardiology input and recommendation Has had nonsustained VT last night Going to go for cardiac cath today (2) HTN (hypertension): Blood pressure remains stable Continue current medications (3) Diabetes: Blood sugar is stable SSI while in the hospital Other medical conditions remained stable DVT prophylaxis with SCDs and increasing ambulation Subjective Is a 63-year-old male with significant past medical history of hypertension, hyperlipidemia and diabetes was admitted with exertional chest pain which happened to be around 2 AM this morning. 12/09 Denies any chest pain or associated symptoms now Denies any other symptoms Remains hemodynamically stable without any arrhythmias on monitor 12/10 The patient was seen and examined in telemetry unit We will have cardiac cath today Physical Exam Vital Signs (Past 24 Hours): Last Vital Signs Temp 36.8 C 12/11/18 15:34 Pulse 77 12/11/18 16:04 Resp 18 12/11/18 16:04 BP 123/83 12/11/18 16:04 Pulse Ox 98 12/11/18 16:04 Constitutional: WD/WN, vitals as above Eyes: PERRL, conjunctivae normal, anicteric sclerae ENMT: external ear and nose normal, oropharynx normal Neck: trachea midline, no thyromegaly Respiratory: normal respiratory effort, lungs clear to auscultation Cardiovascular: Rate/Rhythm: regular rate, regular rhythm and + bradycardic Heart Sounds: normal S1 and normal S2 Gastrointestinal (Abdomen): normal bowel sounds, soft, nontender, no hepatosplenomegaly Neurologic: PERRL, EOMI, accommodation nl, no face palsy, no dysarthria
--- NOTE | 2018-12-11 16:45 | Hospitalist Progress Note ---
Date of Service December 11, 2018 Assessment & Plan (1) Substernal chest pain: Admitted with exertional chest pain since early this morning Has had questionable EKG changes but cardiac enzymes have been negative initiated No more chest pain since admission Appreciate cardiology input and recommendation Has had nonsustained VT last night Status post cardiac cath on 12/10 with EVERETTE placement in circumflex artery Status post repeat cardiac cath on 12/11 with EVERETTE placement in RCA Remains stable this morning without any chest pain and/or palpitation Continue current medications as per clinical trial associate Likely discharge tomorrow (2) Non-ST elevation myocardial infarction (NSTEMI): Has had nonsustained VT day after admission Initial troponins were not elevated Following the LVAD troponin went up to more than 30 Suffered NST MARYJO Underwent cardiac cath and management as above (3) HTN (hypertension): Blood pressure remains stable Continue current medications (4) Diabetes: Blood sugar is stable SSI while in the hospital Other medical conditions remained stable DVT prophylaxis with SCDs and increasing ambulation Status post multiple stent placement Likely discharge tomorrow (5) Aortic stenosis: Subjective Is a 63-year-old male with significant past medical history of hypertension, hyperlipidemia and diabetes was admitted with exertional chest pain which happened to be around 2 AM this morning. 12/09 Denies any chest pain or associated symptoms now Denies any other symptoms Remains hemodynamically stable without any arrhythmias on monitor 12/10 The patient was seen and examined in telemetry unit We will have cardiac cath today 12/11 Status post cardiac cath x2 on 12/10 and on 12/11 Status post PCI with circumflex EVERETTE placement Status post right RCA stent placement today Clinically better following the procedure Physical Exam Vital Signs (Past 24 Hours): Last Vital Signs Temp 36.8 C 12/11/18 15:34 Pulse 77 12/11/18 16:04 Resp 18 12/11/18 16:04 BP 123/83 12/11/18 16:04 Pulse Ox 98 12/11/18 16:04 Physical Exam: No apparent distress at rest Constitutional: WD/WN, vitals as above Eyes: PERRL, conjunctivae normal, anicteric sclerae ENMT: external ear and nose normal, oropharynx normal Neck: trachea midline, no thyromegaly Respiratory: normal respiratory effort, lungs clear to auscultation Cardiovascular: Rate/Rhythm: regular rate, regular rhythm and + bradycardic Heart Sounds: normal S1 and normal S2 Gastrointestinal (Abdomen): normal bowel sounds, soft, nontender, no hepatosplenomegaly Neurologic: PERRL, EOMI, accommodation nl, no face palsy, no dysarthria Results & Data Laboratory Results [facility] 12/11/18 07:50 Sodium 139 Potassium 3.8 Chloride 107 Carbon Dioxide 23 BUN 13 Creatinine 0.87 Glucose 131 H Calcium 9.1 Medications Administered Current Inpatient Medications Acetaminophen (Tylenol) 650 mg PO Q4H PRN PRN Reason: Pain or Fever Stop: 01/08/19 07:36 Al Hydrox/Mg Hydrox/Simethicone (Maalox) 15 ml PO Q4H PRN PRN Reason: Dyspepsia Stop: 01/08/19 07:36 Aspirin (Ecotrin Ectab) 81 mg PO QAM [facility] Stop: 01/08/19 08:59 Last Admin: 12/11/18 10:16 Dose: 81 mg Documented by: Atorvastatin Calcium (Lipitor) 40 mg PO [facility] Stop: 01/08/19 20:59 Last Admin: 12/10/18 21:01 Dose: 40 mg Documented by: Dextrose (Dextrose 50%) 25 - 50 ml IV UD PRN; Protocol PRN Reason: Hypoglycemia Protocol Stop: 01/08/19 07:44 Gabapentin (Neurontin) 1,200 mg PO [facility] Stop: 01/08/19 20:59 Last Admin: 12/10/18 21:01 Dose: 1,200 mg Documented by: Gabapentin (Neurontin) 600 mg PO BIDM [facility] Stop: 01/08/19 07:59 Last Admin: 12/11/18 10:15 Dose: 600 mg Documented by: Glucagon (Glucagen) 1 mg IM UD PRN; Protocol PRN Reason: Hypoglycemia Protocol Stop: 01/08/19 07:44 Glucose (Glucose 40%) 15 - 30 gm PO UD PRN; Protocol PRN Reason: Hypoglycemia Protocol Stop: 01/08/19 07:44 Glucose (Dex4 Glucose) 4 - 8 tabs PO UD PRN; Protocol PRN Reason: Hypoglycemia Protocol Stop: 01/08/19 07:44 Sodium Chloride (Nss 1000ml) 1,000 mls @ 75 mls/hr IV .[id number] [facility] Stop: 12/11/18 20:09 Last Admin: 12/11/18 13:35 Dose: 75 mls/hr Documented by: Insulin Aspart (Novolog Flexpen) 0 units SC ACHS [facility] Stop: 01/08/19 07:36 Last Admin: 12/11/18 11:51 Dose: Not Given Documented by: Lisinopril (Zestril) 5 mg PO QAM [facility] Stop: 01/09/19 08:59 Last Admin: 12/11/18 10:15 Dose: 5 mg Documented by: Metoprolol Succinate (Toprol Xl) 12.5 mg PO BID [facility] Stop: 01/10/19 20:59 Miscellaneous (Carbohydrates For Hypoglycemia) 15 - 30 gm PO UD PRN PRN Reason: Hypoglycemia Treatment Stop: 01/08/19 07:44 Nitroglycerin (Nitrostat) 0.4 mg SL UD PRN PRN Reason: Chest Pain Stop: 01/08/19 07:36 Ondansetron HCl (Zofran) 4 mg IV Q6H PRN PRN Reason: Nausea And Vomiting Stop: 01/09/19 15:52 Pantoprazole Sodium (Protonix) [facility] Stop: 01/08/19 08:59 Last Admin: 12/11/18 10:15 Dose: 40 mg Documented by: Ranitidine HCl (Zantac) 300 mg PO HS [facility] Stop: 01/08/19 20:59 Last Admin: 12/10/18 21:00 Dose: 300 mg Documented by: Ticagrelor (Brilinta) 90 mg PO BID [facility] Stop: 01/09/19 23:29 Last Admin: 12/11/18 10:41 Dose: 90 mg Documented by:
--- NOTE | 2018-12-11 17:40 | Cardiac Catheterization ---
Cardiac Cath Procedure Full Procedure Date December 11, 2018 Pre-Procedure Diagnosis Pre-Procedure Diagnosis: Non STEMI AUC Score AUC Score: 8 Post-Procedure Diagnosis Post-Procedure Diagnosis: Severe CAD (Circumflex obtuse marginal occlusion) and Successful PCI Procedure(s) Performed Procedure(s) Performed: Drug Eluting Stent Ear Mold Laboratory Technician Manuel Desai MD Audio Visual Aide(s) Aba Estimated Blood Loss Estimated Blood Loss: 20 Medication(s) Medication(s): Fentanyl, Heparin, Lidocaine 1%, Nicardipine, Nitroglycerin and Versed (1 mg IV) Summary of Findings IFR 0.70 Successful PCI of mid RCA with single EVERETTE (3.0 x 18 mm Ramone). Indication: Staged assessment of mid RCA following PCI to occluded circumflex yesterday Access: 6 [place] right radial artery Catheters: AR-1 guide --Procedure-- Antithrombotic therapy: Heparin, Procedure: RCA cannulated with AR-1 guide RCA impressively tortuous, difficulty passing straight FFR wire into the distal vessel. D[employer]er 50 passed in the distal vessel, straightening vessel Street FFR wire navigated into the distal vessel IFR 0.7 Position to proceed with PCI of mid RCA Mid RCA lesion predilated with 2.5 compliant balloon Dilated lesion stented with 3.0 x 18 mm Ramone Stent post-dilated with a stent balloon IC vasodilators administered for spasm Post procedure KI 3 flow, stent well expanded with minimal residual stenosis and no apparent cardiac complications. Arterial Closure: TR band Summary: 1. Severe flow-limiting mid RCA disease (IFR 0.7) 2. 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 Cardiac Status Clinical evaluation leading to the procedure CAD Presenation: Non STEMI Anginal Classification: CCS IV Heart Failure: No Cardiogenic Shock within 24 Hours: No Cardiac Arrest within 24 Hours: No Imaging Studies Past 6 Months: Yes Stress Studies Past 6 Months: No Diagnostic Physicians Name: Manuel Desai MD Status: Elective Closure Device Percutaneous Entry Location: Radial Closure Device: Radial Band Recommendations: PCI without planned CABG PCI Indication: Staged PCI Lesion Segment Name: Mid RCA Culprit Artery: No Stenosis Prior to Rx (%): 70 Chronic Total Occlusion: No IVUS: No FFR: Yes Ratio: less than or equal to 0.75% Pre-Procedure KI Flow: 3 Previously Treated Lesion: No Lesion Complexity: Non-High/Non-C Lesion Length (mm): 12 Thrombus Present: No Bifurcation Lesion: No Guidewire Across Lesion: Stenosis Post-Procedure (%): 0 Post-Procedure KI Flow: 3 Devices(s) Deployed: Yes Yes Intraprocedure Events Significant Disection: No Perforation: No
[2018-12-11] MEDS: ATORVASTATIN 40 MG TAB PO SCH (20:39)
[2018-12-11] MEDS: METOPROLOL SUCC 25MG EXT REL TAB PO SCH (20:39)
[2018-12-12 06:00] LABS: Basophils # (auto) 0.04 K/uL (0-0.2); Basophils % (auto) 0.3 %; Eosinophils # (auto) 0.07 K/uL (0-0.5); Eosinophils % (auto) 0.6 %; Hematocrit (blood only) 42.2 % (42-52); Hemoglobin 14.2 g/dL (14.0-18.0); Immature Granulocytes # (auto) 0.02 K/uL (0.00-0.02); Immature Granulocytes % (auto) 0.2 %; Mean Corpuscular Hgb Conc 33.6 g/dL (32-36); Mean Corpuscular Volume 89.8 fL (80-100); Monocytes # (auto) 1.19 K/uL (0.11-0.59); Monocytes % (auto) 9.7 %; Neutrophils # (auto) 8.24 K/uL (1.4-6.5); Neutrophils % (auto) 67.2 %; Platelet Count 260 K/uL (130-400); RDW Coefficient of Variation 12.7 % (11.5-14.5); RDW Standard Deviation 41.4 fL (36.4-46.3); White Blood Count 12.26 K/uL (4.8-10.8)
[2018-12-12 06:27] LABS: BUN Creatinine Ratio 17.2 (10-20); Calcium 8.2 mg/dl (8.5-10.1); Est GFR (African American) 112.5; Est GFR (Non-African American) 97.1; Magnesium 2.1 mg/dl (1.8-2.4)
[2018-12-12] MEDS: PANTOprazole 40 MG TAB PO SCH (08:03)
[2018-12-12] MEDS: METOPROLOL SUCC 25MG EXT REL TAB PO SCH (08:03)
[2018-12-12] MEDS: GABAPENTIN 600 MG TAB PO SCH (08:03)
[2018-12-12] MEDS: TICAGRELOR 90 MG TAB PO SCH (08:04)
[2018-12-12] MEDS: LISINOPRIL 5 MG TAB PO SCH (08:04)
[2018-12-12] MEDS: INSULIN ASPART 100 UNITS/ML 3 ML PEN SC SCH ×2 (08:04→13:27)
[2018-12-12] MEDS: ASPIRIN 81 MG ECTAB PO SCH (08:04)
--- NOTE | 2018-12-12 10:07 | Cardiology Progress Note ---
Date of Service December 12, 2018 Assessment & Plan (1) Non-ST elevation myocardial infarction (NSTEMI): Patient underwent urgent diagnostic cardiac catheterization demonstrating 100% occlusion circumflex with successful revascularization with drug-eluting stent. Patient had residual disease in mid right coronary artery, greater than 70% and positive FFR and underwent staged procedure with right coronary artery stenting yesterday 12/11/2018 Patient on optimal medical regimen i Increased dose of atorvastatin, beta-silva, lisinopril Dual antiplatelet therapy Anticipate discharge today, follow-up cardiology 2 to 3 weeks time with cardiac rehab to be arranged (2) Substernal chest pain: As above (3) HTN (hypertension): Improved with the addition of lisinopril (4) Aortic stenosis: Mild Subjective The patient was seen and examined, chart occasions, telemetry reviewed No complaints this morning. Ambulatory in room. Denies chest pain or shortness of breath tolerating current medications well no arrhythmias good hemodynamics overnight Physical Exam Vital Signs (Past 24 Hours): Last Vital Signs Temp 36.7 C 12/12/18 07:54 Pulse 81 12/12/18 07:54 Resp 18 12/12/18 07:54 BP 141/91 H 12/12/18 07:54 Pulse Ox 99 12/12/18 07:54 Constitutional: WD/WN, vitals as above Eyes: PERRL, conjunctivae normal, anicteric sclerae ENMT: external ear and nose normal, oropharynx normal Mallampati Class: II Neck: trachea midline, no thyromegaly Respiratory: normal respiratory effort, lungs clear to auscultation Cardiovascular: RRR, no murmur, no edema Heart Sounds: normal S1 and normal S2; no gallop and no cardiac rub Vessels: normal carotid upstroke Right radial access site healing well Gastrointestinal (Abdomen): normal bowel sounds, soft, nontender, no hepatosplenomegaly Musculoskeletal: no cyanosis or clubbing, extremities motor strength 5/5 Skin: no rashes, warm and dry Psychiatric: A+Ox3, euthymic affect
--- NOTE | 2018-12-12 12:23 | Hospitalist Progress Note ---
Date of Service December 12, 2018 Assessment & Plan (1) Substernal chest pain: NSTEMI S/P Cardiac Cath and EVERETTE stent placement to Circumflex and RCA Continue Aspirin, Brillinta, lipitor, Metoprolol, Lisinopril Appreciate Cardiology Help NSVT Continue Metoptolol Denies symptoms No recurrence (2) Non-ST elevation myocardial infarction (NSTEMI): Management as above (3) HTN (hypertension): stable Continue current medications (4) Diabetes: Last A1C: 6.8 on 12/10/18 Hold PO meds Continue SSI while hospitalized DVT Px: SCDs Encourage ambulation (5) Aortic stenosis: Subjective Patient is seen and examined at bedside Doing well this morning States chest pain completely resolved Denies SOB, dizziness, nausea Offers no other complaints Physical Exam Vital Signs (Past 24 Hours): Last Vital Signs Temp 36.8 C 12/12/18 11:12 Pulse 97 H 12/12/18 11:12 Resp 18 12/12/18 11:12 BP 137/91 12/12/18 11:12 Pulse Ox 98 12/12/18 11:12 Physical Exam: Physical Exam: Vitals signs as noted above General Appearance:Moderately built and nourished, no apparent distress Head: normocephalic, Atraumatic Eyes: normal inspection, EOMI Neck: supple, Trachea midline Respiratory/Chest: Normal breath sounds, CTA Cardiovascular: S1, S2, No murmur Abdomen/GI:Soft, Non tender, Bowel sounds present Extremities/Musculoskelatal:normal inspection, no edema Neurologic/Psych:AAOX3, grossly no focal neurological deficits Skin: normal color, warm Results & Data Laboratory Results Short CBC 12/12/18 Range/Units 05:32 WBC 12.26 H (4.8-10.8) K/uL Hgb 14.2 (14.0-18.0) g/dL Hct 42.2 (42-52) % Plt Count 260 (130-400) K/uL BMP 12/12/18 05:32 Sodium 142 Potassium 4.0 Chloride 111 H Carbon Dioxide 24 BUN 13 Creatinine 0.76 Glucose 117 H Calcium 8.2 L
--- NOTE | 2018-12-12 12:32 | Discharge Summary ---
Date of Service December 12, 2018 Admission HPI Per Admitting Provider DATE OF ADMISSION: 12/09/2018 CHIEF COMPLAINT: Chest pain. HISTORY OF PRESENT ILLNESS: This is a 63-year-old male with past medical history significant for hyperlipidemia, allergic rhinitis, gastritis, cervical disc disease with myelopathy, avascular necrosis of both the hips who presents with chest pain. The patient was babysitting his dogs, one of the dogs woke up at 12:00 and it could not go to sleep, so he took the dog to the basement where it usually sleeps but it was not sleeping and at around 2:00 a.m., he started to notice chest discomfort, pressure like feeling all over the chest, 6/10 in severity, was feeling short of breath, nauseous and anxious, so he came to the ER. In the ER, nitroglycerin relieved his pain, but it was short-lived, his pain came back and he took a total of 3 of nitroglycerins and because of his anxiety, ER also gave him some Ativan and they tried to give him some fentanyl, but he refused. He stated that he had bad experiences with narcotics in the past several years ago, so he does not want to take it. He still has some mild chest discomfort and is resting comfortably otherwise and hemodynamically stable. Denies any headache, no blurred vision. No cough, no fever, no chills. Currently, no shortness of breath, no abdominal pain. Normal bowel and bladder movements. No burning micturition. No swelling, no rash. The patient also says that he has diarrhea since August when he was talking amoxicillin for 5 days. Since then, he is having 4-5 episodes of diarrheal bowel movements every day. Admission Exam Per Admitting Provider PHYSICAL EXAMINATION: GENERAL: The patient is of moderate build, not in acute distress. VITAL SIGNS: Temperature 36.6, pulse 68, respiratory rate 18, blood pressure 136/94, oxygen 95% on room air. HEENT: No pallor, no icterus. Pupils equal, round, and react to light. NECK: No JVD, no neck masses, no carotid bruit. CARDIOVASCULAR: S1, S2 heard, regular rate and rhythm, no murmur, no gallop. RESPIRATORY SYSTEM: Normal AP diameter. No accessory muscle use. No wheezing, no crackles. ABDOMEN: Soft, bowel sounds present. Nontender. No distention. CENTRAL NERVOUS SYSTEM: Cranial nerves II-XII grossly intact. Nonfocal. EXTREMITIES: No edema, no erythema. Principal Diagnosis Discharge Information Discharge Diagnosis NSTEMI Discharge Goals Decrease discomfort,Improve disease control, Improve function Discharge Activity Limitations Per instructions/follow-up Discharge Data Allergies Allergy/AdvReac Type Severity Reaction Status Date / Time No Known Allergies Allergy Unverified 12/09/18 04:44 Consultations 12/09/18 05:31 ED Decision to Admit Stat 12/09/18 08:00 Consult Cardiology Routine Procedures Performed Operation Date: 12/10/18 13:00 Actual Procedures p Cath, Left with Cors and Vent - Jorge Schreiber MD s Cineradiography w/Routine Exam - Jorge Schreiber MD s Drug Eluting Stent SGl Vessel(Not Applicable) - Duncan Desai MD Operation Date: 12/11/18 11:25 Actual Procedures p Drug Eluting Stent SGl Vessel - Duncan Desai MD s Cineradiography w/Routine Exam(Not Applicable) - Duncan Desai MD s Cath, Coronaries ONLY (no LV)(Not Applicable) - Duncan Desai MD Ordered Studies 12/10/18 13:15 CL Cath Imgs for PACS use only Routine 12/11/18 11:23 CL Cath Imgs for PACS use only Urgent Hospital Course (1) Substernal chest pain: NSTEMI S/P Cardiac Cath and EVERETTE stent placement to Circumflex and RCA Continue Aspirin, Brillinta, lipitor, Metoprolol, Lisinopril Appreciate Cardiology Help NSVT Continue Metoptolol Denies symptoms No recurrence (2) Non-ST elevation myocardial infarction (NSTEMI): Management as above (3) HTN (hypertension): stable Continue current medications (4) Diabetes: Last A1C: 6.8 on 12/10/18 Hold PO meds Continue SSI while hospitalized Exposure to Influenza Influenza Screen: negative Patient did not receive Flu Vaccine this season Started Prophylactic Tamiflu DVT Px: SCDs Encourage ambulation (5) Aortic stenosis: Total Time Total Time Spent Total Time Spent (In Minutes): 37 minutes Discharge Plan Discharge Items Patient Disposition: Home - Self-Care Reason For Visit: CHEST PAIN Discharge Diagnosis: NSTEMI Discharge Goals: Decrease discomfort, Improve disease control and Improve function Activity: Per 'Additional Instructions' section Lifting: Wait until after follow-up appointment Exercise/Sports: Gradually increase as tolerated Non-emergency contact: Primary Care Provider and C[facility] Maker Call non-emergency contact if: you have any medication questions, your symptoms worsen, your pain is not controlled, your pain is worsening, your pain is unusual for you, your pain is concerning for you, you have a fever, your temperature is above 100.5, your temperature is above 101, your temperature is above 101.5 and your wound has increased redness Follow-up/Referrals: Aba Orozco [Primary Care Provider] - Diet: Carb Consistent or DM2 and Heart Healthy Addtl Provider Instructions: Follow up with your PCP on 12/17/18 at 12:45pm Follow up with your Cider Maker Dr.Sheldon Schreiber in 2 weeks Seek immediate medical attention if your symptoms reoccur or worsen Home Care: * Take your medications exactly as directed. Don't skip doses. * Remember that recovery after a heart attack takes time. Plan to rest for at lease 4-8 weeks while you recover. Then return to normal activity when your doctor says it's okay. * Ask your doctor about joining a heart rehabilitation program. * Tell your doctor if you are feeling depressed. Feelings of sadness are common after a heart attack, but it is important that you speak to someone if you are feeling overwhelmed by these feelings. * If you are having chest pain, call 911 for an ambulance. Do NOT drive yourself to the hospital. * Ask your family members to learn CPR. * Learn to take your own blood pressure and pulse. Keep a record of your results. Ask your doctor when you should seek emergency medical attention. He or she will tell you which blood pressure reading is dangerous. Lifestyle Changes: * Maintain a healthy weight. Get help to lose any extra pounds. * Cut back on salt. * Limit canned, dried, packaged, and fast foods. * Don't add salt to your food. * Season foods with herbs instead of salt when you cook. * Break the smoking habit. Enroll in a stop-smoking program to improve your chances of success. * Limit fatty foods. * Ask your doctor about having your lipid levels checked regularly. * Build up your activity according to your doctor's recommendation. * Ask your doctor when it's okay to resume sexual activity. * Tell your doctor about any erectile dysfunction (ED) medication you are taking. Some ED medications are not safe if you take certain heart medications. * Try to manage stress. Follow Up: It is important for you to keep your follow up appointments with your medical provider. ACTIVITY RECOMMENDATIONS: Excess manipulation of the wrist should be avoided for the next 24-48 hours. * No lifting over 2 pounds (approximately a 1/2 gallon of milk) with the utilized arm for 24 hours. * No strenuous activity such as bowling or tennis for 3 days. * Keep the site of the procedure covered with a bandage for 24 hours. *You may shower the day after the procedure. Do not take a tub bath or submerge the puncture site in water for the next 3 days. *Do not operate any motorized equipment for 3 days. SPECIAL CARE INSTRUCTIONS: The site may be slightly bruised and sore following your procedure. Should any of the following occur, contact the Dr. who performed your procedure. 1. Redness/inflammation, swelling, chills, or fever, or colored drainage at procedure site within 3-7 days after your procedure. 2. Coldness, discoloration, ongoing numbness, severe pain, or swelling. Expect mild tingling of hand and tenderness at the puncture site for up to three days. If this persists beyond three days, or other symptoms develop, notify the Dr. who performed your procedure. BLEEDING: If the procedure site on your wrist begins to bleed, do not panic 1. Place 1 or 2 fingers firmly just slightly above the insertion site to stop the bleeding. You may be able to feel your pulse as you hold pressure. 2. Lift your finger after 5 minutes to see if the bleeding has stopped. 3. Once the bleeding has stopped, gently wipe the wrist area clean with a bandage. * If the bleeding from your wrist does not stop after 10 minutes, or if there is a large amount of bleeding or spurting, call 911 (do not drive yourself to the hospital). SKIN IRRITATION: * You may experience some redness and/or swelling in the area where radiation was administered. If any skin irritation occurs, please contact your family physician. FOLLOW UP VISIT: Keep any scheduled doctor appointments. Prescriptions: New aspirin [Ecotrin Low Strength] 81 mg Tablet,Delayed Release (Dr/Ec) 81 mg PO QAM 30 Days Qty: 30 RF: 1 lisinopril [Zestril] 5 mg Tablet 5 mg PO QAM 30 Days Qty: 30 RF: 1 metoprolol succinate 25 mg Tablet Extended Release 24 Hr 12.5 mg PO BID 30 Days Qty: 30 RF: 1 Brilinta 90 mg Tablet 90 mg PO BID 30 Days Qty: 60 RF: 1 oseltamivir [Tamiflu] 75 mg capsule 75 mg PO DAILY 14 Days Qty: 14 RF: 0 Continued atorvastatin 40 mg tablet 40 mg PO HS RF: 0 metformin 500 mg tablet 500 mg PO BID RF: 0 gabapentin 600 mg tablet 600 mg PO BIDM RF: 0 gabapentin 600 mg tablet 1,200 mg PO HS RF: 0 ranitidine HCl 300 mg tablet 300 mg PO HS RF: 0 lansoprazole 30 mg capsule,delayed release(DR/EC) 30 mg PO QAM RF: 0 Stand-Alone Forms: [facility]/Other Patient Handouts: Blood Sugar Check Discharge Orders: Discharge Order (Routine); Ordered 12/12/18 Ordered By: Pb Zuñiga Admission Data Admit Date/Time: 12/09/18 06:15 Attending Provider: Pb Zuñiga Admit Provider: Earl Price Primary Care Provider: Aba Orozco Other Providers: Ernestina Oleary ; Earl Price ; Home Rocha ; Raymond Hyman ; Jorge Schreiber ; Michael Madera ; EdelmiraShabbir riley ; Trevon Duke ; Jeaneth Schneider ; Nory Skelton ; Macie Dominguez Service: Telemetry Other Interventions: Discharge Summary Assessment (RN) Last Done: 12/12/18 14:05 Pending Studies at Discharge: No DC Date/Time DO NOT enter until pt leaves facility: 12/12/18 15:45
[2018-12-12 13:48] LABS: Influenza A virus by PCR Neg for Influ A (Neg); Influenza B virus by PCR Neg for Influ B (Neg)
== END 2018-12-12 15:45 | disposition home or self-care (01) ==
LOC: ED 04:20 → 2S 04:20 → SUATTDRO 06:15 → 2S 06:59
PROC: CLB.CCO (2018-12-11 11:25)